=== PATIENT | male | born 1940 | race Caucasian/White ===

== ENCOUNTER 2024-12-28 07:37 | Emergency (ER) | payer OTHER, SELFPAY ==
[2024-12-28] VITALS (10 sets, daily range): BP systolic 120–168; BP diastolic 77–85; PULSE 82–110; RESP 15–25; TEMP 36.3–36.6; O2SAT 87–99; BMI 22.3
--- NOTE | 2024-12-28 07:53 | EKG12_ITS ---
Test Reason : SOB Blood Pressure : */* mmHG Vent. Rate : 97 BPM Atrial Rate : 97 BPM P-R Int : 150 ms QRS Dur : 122 ms QT Int : 372 ms P-R-T Axes : 79 28 46 degrees QTcB Int : 472 ms Normal sinus rhythm Right bundle branch block Abnormal ECG Confirmed by PEPE FOOTE, MICKEY ([id number]), general expeditor BAUTISTA MCGRATH ([id number]) on 12/30/2024 6:13:05 AM Referred By: Confirmed By: MICKEY CANTU MD
[2024-12-28 08:15] LABS: Absolute Lymphocyte Count 1.48 X10^3/uL (0.83-4.51); Absolute Neutrophil Count 3.4 X10^3/uL (2.0-7.7); Basophil# 0.06 X10^3/uL; Eosinophil# 0.71 X10^3/uL; Eosinophils% 11.7 % (0-5); Hematocrit 50.2 % (40-54); Hemoglobin 16.6 g/dL (13.0-16.5); Lymphocyte # 1.48 X10^3/ul (0.83-4.51); Lymphocyte % 24.3 % (19-41); Mean Corp Hgb Conc 33.1 g/dL (32-36); Mean Corpuscular Hgb 33.1 pg (27.0-32.0); Mean Corpuscular Volume 100.2 fL (80-94); Mean Platelet Vol. 9.1 fl (6.2-12.0); Monocyte# 0.49 X10^3/uL; NRBC Flagged by Analyzer 0 % (0-5); Neutrophil # 3.35 X10^3/uL (2.7-7.7); Platelet Count 195 K/mm3 (150-450); RBC Distribution Width CV 12.8 % (11.6-14.6); RBC Distribution Width SD 47.5 fl (35.1-43.9); Red Blood Count 5.01 M/mm3 (4.6-6.2); White Blood Count 6.1 K/mm3 (4.4-11.0)
--- NOTE | 2024-12-28 08:18 | RAD_ITS ---
PROCEDURE: CHEST PA AND LATERAL 12/28/2024 REASON FOR EXAM: DYSPNEA ON EXERTION TECHNIQUE: Frontal and lateral views of the chest. COMPARISON: None FINDINGS: Hardware: None Heart: The heart size is normal. Mediastinum: The mediastinal contour is unremarkable. Lungs: No focal consolidation. No pneumothorax. No pleural effusion. Bones: The bones are unremarkable. RAD/Chest PA and Lateral IMPRESSION: NO ACUTE FINDINGS. Reading Location: [facility]
[2024-12-28 08:38] LABS: Lactic Acid 1.5 mmol/L (0.0-2.0)
[2024-12-28 08:39] LABS: Anion Gap 10 (5-15); BUN 15 mg/dL (4-19); BUN/Creat Ratio 13.7 RATIO (10-20); Calcium,Total 9.8 mg/dL (7.6-11.0); Carbon Dioxide 29.9 mmol/L (21.0-32.0); Chloride 100 mmol/L (98-108); Creatinine, Serum 1.08 mg/dL (0.70-1.20); EST Glomerular Filtration Rate 67 (>60); Estimated Creatinine Clearance 47.66 ml/min (50-250); Glucose 125 mg/dL (70-99); Potassium 4.5 mmol/L (3.3-5.1); Sodium Level 140 mmol/L (133-145); Troponin T High Sensitivity 18 ng/L (<=22)
--- OUTSIDE RECORDS SUMMARY | 2024-12-28 08:46 | XMS RPT_ITS | CCD ---
Author Organization [facility] Care Team Providers Care Executive Producer Promos Name Role Phone VALERIE WALLACE Adalberto Unavailable Unavailable Braden FOOTE MD, Angela Unavailable [phone] JONO CUENCA Referring Unavailable TWYLA RAMOS Primary Care Unavailable JONO CUENCA Attending Unavailable TWYLA RAMOS Primary Care Unavailable JONO CUENCA Referring Unavailable TWYLA RAMOS Primary Care Unavailable JONO CUENCA Referring Unavailable Allergies Allergy Classification Reported Allergen(s) Allergy Type Date of Onset Reaction(s) Facility (4 sources) acetaminophen; Translations: [ACETAMINOPHEN] Drug Allergy 05-04-2016 Itching [facility] Repository (1 source) donna albicans extract; Translations: [YEAST] Drug Allergy 05-04-2016 AOF [facility] Repository (4 sources) oxyCODONE; Translations: [OXYCODONE] Drug Allergy 05-04-2016 [facility] Repository Medications Completed/Discontinued Medications Medication Drug Class(es) Dates Sig (Normalized) Sig (Original) diphenhydrAMINE (2 sources) Histamine-1 Receptor Antagonist DIPHENHYDRAMINE HCL (BENADRYL ALLERGY ORAL) Take 2 tablets by mouth as needed. 0 Active Comment on above: Take 2 tablets by mo ut as needed. 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); Translations: [Follicular lymphoma grade II, intrathoracic lymph nodes] Onset: 06-02-2016 Chronic Other nervous system disorders (2 sources) Spinal cord compression; Translations: [Unspecified cord compression] Onset: 05-24-2016 05-24-2016 Chronic Other nervous system disorders (2 sources) Complex regional pain syndrome type I of right upper limb; Translations: [Complex regional pain syndrome I of right upper limb] Onset: 10-19-2016 10-19-2016 Chronic Other upper respiratory disease (3 sources) Mediastinal mass; Translations: [Other diseases of mediastinum, not elsewhere classified] Onset: 05-04-2016 05-04-2016 Episodic Past or Other Problems Problem Classification Problem Date Documented Da te Episodic/Chronic Other nervous system disorders (2 sources) Anesthesia of skin; Translations: [Paresthesia of skin] Onset: 02-28-2017 Episodic Other upper respiratory disease (1 source) Other diseases of mediastinum, not elsewhere classified; Translations: [Mediastinal mass] Onset: 05-04-2016 Episodic Results Test Name Value Interpretation Reference Range Facility CBC W Auto Differential pane l (Bld)on 05-13-2022 Basophils (Bld) [#/Vol] 0.08 10*3/uL Normal <0.11 [facility] Comment on above: Order Comment: Speci men Type: BLOOD SPECIMEN Ordering Facility: [facility] Address: [address] [place] [address] Performed By: #### 5 7021-8 #### [facility] CLIA [id number] [address] [place] [address] [place] Basophils/100 WBC (Bld) 1.3 % Normal [facility] Comment on above: Order Comment: Speci men Type: BLOOD SPECIMEN Ordering Facility: [facility] Address: [address] [place] [address] Performed By: #### 5 7021-8 #### [facility] CLIA [id number] [address] [place] [address] [place] Differential cell count method Nom (Bld) Auto Normal [facility] Comment on above: Order Comment: Juani men Type: BLOOD SPECIMEN Ordering Facility: [facility] Address: [address] [place] [address] Performed By: #### 5 7021-8 #### [facility] CLIA [id number] [address] [place] [address] [place] Eosinophils (Bld) [#/Vol] 0.49 10*3/uL High <0.46 [facility] Comment on above: Order Comment: Speci men Type: BLOOD SPECIMEN Ordering Facility: [facility] Address: [address] [place] [address] Performed By: #### 5 7021-8 #### [facility] CLIA [id number] [address] [place] [address] [place] Eosinophils/100 WBC (Bld) 7.8 % Normal [facility] Comment on above: Order Comment: Speci men Type: BLOOD SPECIMEN Ordering Facility: [facility] Address: [address] [place] [address] Performed By: #### 5 7021-8 #### [facility] CLIA [id number] [address] [place] [address] [place] Erythrocyte distribution width (RBC) [Ratio] 12.8 % Normal 11.5-15.0 [facility] Comment on above: Order Comment: Speci men Type: BLOOD SPECIMEN Ordering Facility: [facility] Address: [address] [place] [address] Performed By: #### 5 7021-8 #### [facility] CLIA [id number] [address] [place] [address] [place] Hematocrit (Bld) [Volume fraction] 48.8 % Normal 39.0-51.0 [facility] Comment on above: Order Comment: Speci men Type: BLOOD SPECIMEN Ordering Facility: [facility] Address: [address] [place] [address] Performed By: #### 5 7021-8 #### [facility] CLIA [id number] [address] [place] [address] [place] Hemoglobin (Bld) [Mass/Vol] 16.3 g/dL Normal 13.0-17.0 [facility] Comment on above: Order Comment: Speci men Type: BLOOD SPECIMEN Ordering Facility: [facility] Address: [address] [place], [place] [address] Performed By: #### 5 7021-8 #### [facility] CLIA [id number] [address] [place] [address] [place] Immature granulocytes (Bld) [#/Vol] 10*3/uL Normal <0.10 [facility] Comment on above: Order Comment: Speci men Type: BLOOD SPECIMEN Ordering Facility: [facility] Address: [address] [place], [place] [address] Performed By: #### 5 7021-8 #### [facility] CLIA [id number] [address] [place] [address] [place] Immature granulocytes/100 WBC (Bld) 0.3 % Normal [facility] Comment on above: Order Comment: Speci men Type: BLOOD SPECIMEN Ordering Facility: [facility] Address: [address] [place], [place] [address] Performed By: #### 5 7021-8 #### [facility] CLIA [id number] [address] [place] [address] [place] Lymphocytes (Bld) [#/Vol] 1.57 10*3/uL Normal 1.00-4.00 [facility] Comment on above: Order Comment: Speci men Type: BLOOD SPECIMEN Ordering Facility: [facility] Address: [address] [place], [place] [address] Performed By: #### 5 7021-8 #### [facility] CLIA [id number] [address] [place] [address] [place] Lymphocytes/100 WBC (Bld) 24.9 % Normal [facility] Comment on above: Order Comment: Speci men Type: BLOOD SPECIMEN Ordering Facility: [facility] Address: [address] [place], [place] [address] Performed By: #### 5 7021-8 #### [facility] CLIA [id number] [address] [place] [address] MCH (RBC) [Entitic mass] 33.3 pg Normal 26.0-34.0 [facility] Comment on above: Order Comment: Speci men Type: BLOOD SPECIMEN Ordering Facility: [facility] Address: [address] [place] [address] Performed By: #### 5 7021-8 #### [id number] [address] [place] [address] MCHC (RBC) [Mass/Vol] 33.4 g/dL Normal 30.5-36.0 [facility] Comment on above: Order Comment: Speci men Type: BLOOD SPECIMEN Ordering Facility: [facility] Address: [address] [place] [address] Performed By: #### 5 7021-8 #### [facility] [id number] [address] [place] [address] [facility] MCV (RBC) [Entitic vol] 99.8 fL Normal 80.0-100.0 [facility] Comment on above: Order Comment: Speci men Type: BLOOD SPECIMEN Ordering Facility: [facility] Address: [address] [place], [place] [address] Performed By: #### 5 7021-8 #### [facility] [id number] [address] [place] [address] [place] [facility] [place] Monocytes (Bld) [#/Vol] 0.52 10*3/uL Normal <0.87 [facility] Comment on above: Order Comment: Speci men Type: BLOOD SPECIMEN Ordering Facility: [facility] Address: [address] [place], [place] [address] Performed By: #### 5 7021-8 #### [facility] CLIA [id number] [address] [place] [address] [place] Monocytes/100 WBC (Bld) 8.2 % Normal [facility] Comment on above: Order Comment: Speci men Type: BLOOD SPECIMEN Ordering Facility: [facility] Address: [address] [place] [address] Performed By: #### 5 7021-8 #### [facility] CLIA [id number] [address] [place] [address] [place] Neutrophils (Bld) [#/Vol] 3.63 10*3/uL Normal 1.45-7.50 [facility] Comment on above: Order Comment: Speci men Type: BLOOD SPECIMEN Ordering Facility: [facility] Address: [address] [place] [address] Performed By: #### 5 7021-8 #### [facility] CLIA [id number] [address] [place] [address] [place] Neutrophils/100 WBC (Bld) 57.5 % Normal [facility] Comment on above: Order Comment: Speci men Type: BLOOD SPECIMEN Ordering Facility: [facility] Address: [address] [place] [address] Performed By: #### 5 7021-8 #### [facility] CLIA [id number] [address] [place] [address] [place] Nucleated RBC (Bld) [#/Vol] 10*3/uL Normal <0.01 [facility] Comment on above: Order Comment: Speci men Type: BLOOD SPECIMEN Ordering Facility: [facility] Address: [address] [place] [address] Performed By: #### 5 7021-8 #### [facility] CLIA [id number] [address] [place] [address] [place] Nucleated RBC/100 WBC (Bld) [Ratio] 0.0 /100 WBC Normal [facility] Comment on above: Order Comment: Speci men Type: BLOOD SPECIMEN Ordering Facility: [facility] Address: [address] [place] [address] Performed By: #### 5 7021-8 #### [facility] CLIA [id number] [address] [place] [address] [place] Platelet mean volume (Bld) [Entitic vol] 8.7 fL Low 9.0-12.7 [facility] Comment on above: Order Comment: Speci men Type: BLOOD SPECIMEN Ordering Facility: [facility] Address: [address] [place] [address] Performed By: #### 5 7021-8 #### [facility] CLIA [id number] [address] [place] [address] [place] Platelets (Bld) [#/Vol] 202 10*3/uL Normal 150-400 [facility] Comment on above: Order Comment: Speci men Type: BLOOD SPECIMEN Ordering Facility: [facility] Address: [address] [place], [place] [address] Performed By: #### 5 7021-8 #### [facility] CLIA [id number] [address] [place] [address] [place] RBC (Bld) [#/Vol] 4.89 10*6/uL Normal 4.20-6.00 [facility] Comment on above: Order Comment: Speci men Type: BLOOD SPECIMEN Ordering Facility: [facility] Address: [address] [place], [place] [address] Performed By: #### 5 7021-8 #### [facility] CLIA [id number] [address] [place] [address] [place] WBC (Bld) [#/Vol] 6.31 10*3/uL Normal 3.70-11.00 [facility] Comment on above: Order Comment: Speci men Type: BLOOD SPECIMEN Ordering Facility: [facility] Address: [address] [place] [address] Performed By: #### 5 7021-8 #### [facility] RILEY [id number] [address] [place] [address] [place] CNOVSPon 05-13-2022 CNOVSP Visit (SP) Office ([facility]) RAMANAGIOVANNY Robbins ([id number]) 1940 M Date Time Provider Department 05/13/22 9:00 AM JONO CUENCA During your visit today, we recorded the following information about you: Temperature Pulse Blood pressure Weight 98 degrees 89/minute 129/76 84.1 kg Height 1.787 m Jono Cuenca MD 05/13/2022 9:24 AM Signed PATIENT NAME: Giovanny Robbins Ramana. CLINIC NO: [id number]. ATTENDING PHYSICIAN: Jono Cuenca MD. DATE OF SERVICE: 05/13/2022. 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 He denies history of tobacco abuse but had secondhand smoke exposure. Possible occupational exposure to a dose in the forearm. Patient has a mild chronic cough but no shortness of breath or dyspnea on exertion. He has reactive airway disease diagnosed many years ago. Patient also has a long history of dysphagia. He may have esophageal stricture, he had EGD for removal of food stuck in his esophagus 15 years ago. He has intermittent history of acid reflux disease, but had not noticed any symptom in the last 3 years. Patient denies any significant weight loss, fever chills or night sweats. CTA chest was ordered in the emergency room. CT scan chest in the emergency room last week showed no evidence of pulmonary embolism. Posterior mediastinal mass extending from the nic to the diaphragm hiatus. 6.9 x 8.0 centimeter in greatest AP transverse dimension. Encompass three-quarter of the aorta on the right and from the spine involving the lumbar brachial artery. No bony erosion. Esophagus appeared to be somewhat thickened.Emphysematous changes noted in the lung bases. Normal upper abdomen, liver and spleen and adrenal glands. Subsequent diagnostic workup including bronchoscopy which showed no endobronchial lesion. EBUS biopsy of posterior mediastinal mass with negative for malignant cells. AFB stain was negative. Esophageal study also showed posterior extrinsic compression of the mid to lower esophagus but no esophageal ulcers. A CT needle biopsy of the posterior mediastinal mass in his pathology is consistent with a follicular B-cell lymphoma. Patient was also started on dexamethasone and had radiation therapy (400 cGy in 2 fx) to his thoracic spine and his back pain has improved. He has no focal neurological symptom. Patient has no fever, chills or night sweats. He may had herpetic infection of the mouth and had recovered after finishing radiation therapy . He has no difficulty swallowing or stomatitis at this time. Bone marrow biopsy last week for complete staging showed no lymphoma involvement. FINAL DIAGNOSIS Mass, mediastinal, biopsy - Low-grade B cell lymphoma, favor follicular lymphoma, grade 1-2 (of 3). CVC/jacob 06/01/2016 COMMENT Histologic sections show needle-shaped fragments of fibroconnective tissue with marked sclerosis and an abnormal lymphoid infiltrate. The lymphocytes are predominantly small, with slightly irregular nuclei and scant cytoplasm. Further examination is not possible due to the partially crushed nature of the specimen. The overall architecture of this infiltrate is also difficult to assess, but there are areas with features corresponding to loose abnormal follicles. Flow cytometric immunophenotypic analysis performed on this specimen identified an abnormal B-cell population positive for CD10 and negative for surface immunoglobulin light chains. Immunohistochemical stains have been performed on sections of the fixed, paraffin-embedded tissue with appropriately staining controls. The lymphoma cells are positive are positive for CD10, CD20, BCL2 and BCL6 (subset). The stain for Ki-67 is positive in approximately 20% of total cells. Small, mature T-cells are seen on the stain for CD3. There are no networks of JQ23-orjnrboc follicular dendritic cells. The neoplastic cells are negative for cyclin D1. In conclusion, the findings in this case support the diagnosis of low-grade B cell lymphoma, favor follicular lymphoma grade 1-2 (of 3). The small amount of specimen available, as well as the lack of networks of OS34-ukcwgzme follicular dendritic cells prevent the categorical diagnosis of follicular lymphoma. Previous Treatment: Rituxan AND Bendamustine x 4 ( 07/28/16 - 11/06/16 ) [place] - Rituxan maintenance ( 11/07/2016 - 12/21/2017 ) Interim history: Patient is doing well. He has no new complaints. He denies fever, chills or sweating. He has no chest pain, or shortness of breath. No back pain or neck pain. His weight and appetite stable. All medications AND allergies updated and reviewed by me. REVIEW OF SYSTEMS: CONSTITUTIONAL: No fevers, chills, nightsweats, unintended weight loss HEENT: Denies frequent or severe heaches, (more content not included)... Normal [facility] Comprehensive metabolic 2000 panelon 05-13-2022 Albumin [Mass/Vol] 4.4 g/dL Normal 3.9-4.9 [facility] Comment on above: Order Comment: Abiola siddiqi Type: BLOOD SPECIMEN Ordering Facility: [facility] Address: [address] [place] [address] Performed By: #### 2 4323-8, 253-0 #### [facility] CLIA [id number] [address] [place] [address] [place] ALP [Catalytic activity/Vol] 95 U/L Normal 38-113 [facility] Comment on above: Order Comment: Abiola siddiqi Type: BLOOD SPECIMEN Ordering Facility: [facility] Address: [address] [place] [address] Performed By: #### 2 4323-8, 2532-0 #### [facility] CLIA [id number] [address] [place] [address] STATES OF [facility] ALT [Catalytic activity/Vol] 14 U/L Normal 10-54 [facility] Comment on above: Order Comment: Abiola siddiqi Type: BLOOD SPECIMEN Ordering Facility: [facility] Address: [address] [place], [place] Performed By: #### 2 43238, 2531-0 #### [facility] CLIA [id number] [address] [place] [address] [place] Anion gap [Moles/Vol] 10 mmol/L Normal 9-18 [facility] Comment on above: Order Comment: Speci men Type: BLOOD SPECIMEN Ordering Facility: [facility] Address: [address] [place], [place] [address] Performed By: #### 2 4328, 2531-0 #### [facility] CLIA [id number] [address] [place] [address] [place] AST [Catalytic activity/Vol] 22 U/L Normal 14-40 [facility] Comment on above: Order Comment: Speci men Type: BLOOD SPECIMEN Ordering Facility: [facility] Address: [address] [place], [place] [address] Performed By: #### 2 4323-02, 2531-0 #### [facility] CLIA [id number] [address] [place] [address] [place] Bilirubin [Mass/Vol] 0.6 mg/dL Normal 0.2-1.3 [facility] Comment on above: Order Comment: Speci men Type: BLOOD SPECIMEN Ordering Facility: [facility] Address: [address] [place], [place] [address] Performed By: #### 2 4328, 2531-0 #### [facility] CLIA [id number] [address] [place] [address] [place] Calcium [Mass/Vol] 9.7 mg/dL Normal 8.5-10.2 [facility] Comment on above: Order Comment: Speci men Type: BLOOD SPECIMEN Ordering Facility: [facility] Address: [address] [place], [place] [address] Performed By: #### 2 4328, 2-0 #### [facility] CLIA [id number] [address] [place] [address] [place] Chloride [Moles/Vol] 100 mmol/L Normal 97-105 [facility] Comment on above: Order Comment: Speci men Type: BLOOD SPECIMEN Ordering Facility: [facility] Address: [address] [place] [address] Performed By: #### 2 4323-8, 2532-0 #### [facility] CLIA [id number] [address] [place] [address] [place] CO2 [Moles/Vol] 27 mmol/L Normal 22-30 [facility] Comment on above: Order Comment: Speci men Type: BLOOD SPECIMEN Ordering Facility: [facility] Address: [address] [place] [address] Performed By: #### 2 4323-8, 2532-0 #### [facility] CLIA [id number] [address] [place] [address] [place] Creatinine [Mass/Vol] 1.01 mg/dL Normal 0.73-1.22 [facility] Comment on above: Order Comment: Speci men Type: BLOOD SPECIMEN Ordering Facility: [facility] Address: [address] [place] [address] Performed By: #### 2 4323-8, 2532-0 #### [facility] CLIA [id number] [address] [place] [address] [place] ESTIMATED GLOMERULAR FILTRATION RATE 74 mL/min/1.73m??? Normal >=60 [facility] Comment on above: Order Comment: Speci men Type: BLOOD SPECIMEN Ordering Facility: [facility] Address: [address] [place] [address] Result Comment: Cinthya mated Glomerular Filtration Rate (eGFR) is calculated using the 2020 CKD-EPI creatinine equation. This equation utilizes serum creatinine, sex, and age as parameters. The creatinine assay has traceable calibration to isotope dilution-mass spectrometry. Refer to KDIGO guidelines for clinical interpretation. In patients with unstable renal function, e.g. those with acute kidney injury, the eGFR may not accurately reflect actual GFR. Performed By: #### 2 4328, #### [facility] CLIA [id number] [address] [place] [address] [place] Glucose [Mass/Vol] 103 mg/dL High 74-99 [facility] Comment on above: Order Comment: Abiola siddiqi Type: BLOOD SPECIMEN Ordering Facility: [facility] Address: [address] [place] [address] Result Comment: The [place] Diabetes [employer] (ADA) provides guidance for cutoff values for fasting glucose and random glucose. The ADA defines fasting as no caloric intake for at least 8 hours. Fasting plasma glucose results between 100 to 125 mg/dL indicate increased risk for diabetes (prediabetes). Fasting plasma glucose results greater than or equal to 126 mg/dL meet the criteria for diagnosis of diabetes. In the absence of unequivocal hyperglycemia, results should be confirmed by repeat testing. In a patient with classic symptoms of hyperglycemia or hyperglycemic crisis, random plasma glucose results greater than or equal to 200 mg/dL meet the criteria for diagnosis of diabetes. Reference: Standards of Medical Care in Diabetes 2016, [place] [employer]. Diabetes Care. 2016.39(Suppl 1). Performed By: #### 2 4328, #### [facility] CLIA [id number] [address] [place] [address] [place] Potassium [Moles/Vol] 4.3 mmol/L Normal 3.7-5.1 [facility] Comment on above: Order Comment: Abiola siddiqi Type: BLOOD SPECIMEN Ordering Facility: [facility] Address: [address] [place] [address] Performed By: #### 2 4328, #### [facility] CLIA [id number] [address] [place] [address] [place] Protein [Mass/Vol] 6.7 g/dL Normal 6.3-8.0 [facility] Comment on above: Order Comment: Speci men Type: BLOOD SPECIMEN Ordering Facility: [facility] Address: [address] [place], [place] [address] Performed By: #### 2 4323-8, 2531-0 #### [facility] CLIA [id number] [address] [place] [address] [place] Sodium [Moles/Vol] 137 mmol/L Normal 136-144 [facility] Comment on above: Order Comment: Speci men Type: BLOOD SPECIMEN Ordering Facility: [facility] Address: [address] [place] [address] Performed By: #### 2 4323-8, 2531-0 #### [id number] [address] [place] [address] [place] Urea nitrogen [Mass/Vol] 14 mg/dL Normal 9-24 [facility] Comment on above: Order Comment: Speci men Type: BLOOD SPECIMEN Ordering Facility: [facility] Address: [address] [place] [address] Performed By: #### 2 4323-8, 2531-0 #### [facility] CLIA [id number] [address] [place] [address] [place] LDH SerPl-cCncon 05-13-2022 LDH [Catalytic activity/Vol] 148 U/L Normal 135-225 [facility] Comment on above: Order Comment: Speci men Type: BLOOD SPECIMEN Ordering Facility: [facility] Address: [address] [place], [place] [id number] Performed By: #### 2 4323-8, 2531-0 #### [facility] [id number] [address] [place] [address] [place] XR CHEST 2V FRONTAL/LATon XR CHEST 2V FRONTAL/LAT * * *Final Report* * * DATE OF EXAM: May 13 2022 8:31AM [id number] - XR CHEST 2V FRONTAL/LAT / PROCEDURE REASON: multiple diagnoses * * * * Physician Interpretation * * * * EXAMINATION: CHEST RADIOGRAPH (2 VIEW FRONTAL and LATERAL) CLINICAL HISTORY: 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 Lungs and pleura: No consolidation. No lung mass. No pleural effusion. No pneumothorax. Cardiomediastinal silhouette: Normal cardiomediastinal silhouette. Bones and soft tissues: Unremarkable. IMPRESSION: No acute radiographic abnormality. 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 Transcribe Date/Time: May 13 2022 4:47P Dictated by : LUCILA CONTRERAS MD This examination was interpreted and the report reviewed and electronically signed by: LUCILA CONTRERAS MD on May 13 2022 4:48PM EST [id number] Normal [facility] Vital Signs Date Time Vital Sign Value Performing Clinician Faci lity 05-13-2022 08:43-0400 Body height 178.7 cm Jono Cuenca MD Work Phone: [facility] 05-13-2022 08:43-0400 Body temperature 98.01 [degF] Jono Cuenca MD Work Phone: [facility] 05-13-2022 08:43-0400 Body weight 84.14 kg Jono Cuenca MD Work Phone: [facility] 05-13-2022 08:43-0400 Diastolic blood pressure 76 mm[Hg] Jono Cuenca MD Work Phone: [facility] 05-13-2022 08:43-0400 Heart rate 89 /min Jono Cuenca MD Work Phone: [facility] 05-13-2022 08:43-0400 SaO2% (BldA) [Mass fraction] 96 % Jono Cuenca MD Work Phone: [facility] 05-13-2022 08:43-0400 Systolic blood pressure 129 mm[Hg] Jono Cuenca MD Work Phone: [facility] Encounters Encounter Date Encounter Type Care Provider Facility Start: 05-13-2022 End: 05-13-2022 ambulatory Jono Cuenca MD Work Phone: Hematology/Oncology Comment on above: 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 (HCC) (Primary Dx) Start: 05-13-2022 End: 05-13-2022 Patient encounter procedure Jono Cuenca MD Work Phone: [facility] Start: 05-13-2022 End: 05-13-2022 Subsequent hospital visit by physician Xr [facility] Paty Mob Work Phone: Radiology Comment on above: 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 (HCC) [C82.12] Start: 02-28-2017 End: 02-28-2017 [facility] Procedures Date Procedure Procedure Detail Performing Clinician Start: 05-13-2022 Radiologic exam ches t 2 views Jono Cuenca MD Work Phone: Plan of Treatment Date Care Activity Detail Author Start: 05-13-2025 DIABETES SCREEN DIABETES SCREEN [facility] Start: 03-24-2022 Influenza vaccination INFLUENZA (#1) [facility] Start: 07-24-2021 ADVANCE DIRECTIVE DISCUSSION ADVANCE DIRECTIVE DISCUSSION [facility] Start: 07-24-2021 DEPRESSION ASSESSMENT DEPRESSION ASS ESSMENT [facility] Start: 1959 SHINGRIX VACCINE (1 of 2) BAGLEY GRIX VACCINE (1 of 2) [facility] Start: 1957 Urine microalbumin profile DTAP,TDAP ,TD (1 - Tdap) [facility] Start: 1946 PNEUMOCOCCAL: 65+ (1 - PCV) PNEUMOCOCCAL: 65+ (1 - PCV) [facility] Start: 04-17-1939 COVID-19 VACCINE (#1) COVID-19 VACCI NE (#1) [facility] Social History Date Type Detail Facility Start: 05-04-2016 Tobacco smoking stat us NHIS Never smoked tobacco [facility] Start: 05-04-2016 Tobacco use and exposure Smoke less tobacco non-user [facility] Start: 05-13-2022 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 Start: 05-03-2022 End: 05-13-2022 Exposure to SARS-CoV-2 (event) Not sure [facility] Progress note 05-13-2022 Note Date & Type Note Facility 05-13-2022 Note HNO ID: [id number] Author: Jono Cuenca MD Service: ? Author Type: Physician Type: Progress Notes Filed: 05/13/2022 9:24 AM Note Text: PATIENT NAME: Giovanny Auguste. CLINIC NO: [id number]. ATTENDING PHYSICIAN: Jono Cuenca MD. DATE OF SERVICE: 05/13/2022. 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 He denies history of tobacco abuse but had secondhand smoke exposure. Possible occupational exposure to a dose in the forearm. Patient has a mild chronic cough but no shortness of breath or dyspnea on exertion. He has reactive airway disease diagnosed many years ago. Patient also has a long history of dysphagia. He may have esophageal stricture, he had EGD for removal of food stuck in his esophagus 15 years ago. He has intermittent history of acid reflux disease, but had not noticed any symptom in the last 3 years. Patient denies any significant weight loss, fever chills or night sweats. CTA chest was ordered in the emergency room. CT scan chest in the emergency room last week showed no evidence of pulmonary embolism. Posterior mediastinal mass extending from the nic to the diaphragm hiatus. 6.9 x 8.0 centimeter in greatest AP transverse dimension. Encompass three-quarter of the aorta on the right and from the spine involving the lumbar brachial artery. No bony erosion. Esophagus appeared to be somewhat thickened.Emphysematous changes noted in the lung bases. Normal upper abdomen, liver and spleen and adrenal glands. Subsequent diagnostic workup including bronchoscopy which showed no endobronchial lesion. EBUS biopsy of posterior mediastinal mass with negative for malignant cells. AFB stain was negative. Esophageal study also showed posterior extrinsic compression of the mid to lower esophagus but no esophageal ulcers. A CT needle biopsy of the posterior mediastinal mass in his pathology is consistent with a follicular B-cell lymphoma. Patient was also started on dexamethasone and had radiation therapy (400 cGy in 2 fx) to his thoracic spine and his back pain has improved. He has no focal neurological symptom. Patient has no fever, chills or night sweats. He may had herpetic infection of the mouth and had recovered after finishing radiation therapy . He has no difficulty swallowing or stomatitis at this time. Bone marrow biopsy last week for complete staging showed no lymphoma involvement. FINAL DIAGNOSIS Mass, mediastinal, biopsy - Low-grade B cell lymphoma, favor follicular lymphoma, grade 1-2 (of 3). CVC/jacob 06/01/2016 COMMENT Histologic sections show needle-shaped fragments of fibroconnective tissue with marked sclerosis and an abnormal lymphoid infiltrate. The lymphocytes are predominantly small, with slightly irregular nuclei and scant cytoplasm. Further examination is not possible due to the partially crushed nature of the specimen. The overall architecture of this infiltrate is also difficult to assess, but there are areas with features corresponding to loose abnormal follicles. Flow cytometric immunophenotypic analysis performed on this specimen identified an abnormal B-cell population positive for CD10 and negative for surface immunoglobulin light chains. Immunohistochemical stains have been performed on sections of the fixed, paraffin-embedded tissue with appropriately staining controls. The lymphoma cells are positive are positive for CD10, CD20, BCL2 and BCL6 (subset). The stain for Ki-67 is positive in approximately 20% of total cells. Small, mature T-cells are seen on the stain for CD3. There are no networks of [id number] follicular dendritic cells. The neoplastic cells are negative for cyclin D1. In conclusion, the findings in this case support the diagnosis of low-grade B cell lymphoma, favor follicular lymphoma grade 1-2 (of 3). The small amount of specimen available, as well as the lack of networks of [id number] follicular dendritic cells prevent the categorical diagnosis of follicular lymphoma. Previous Treatment: Rituxan AND Bendamustine x 4 ( 07/28/16 - 11/06/16 ) [place] - Rituxan maintenance ( 11/07/2016 - 12/21/2017 ) Interim history: Patient is doing well. He has no new complaints. He denies fever, chills or sweating. He has no chest pain, or shortness of breath. No back pain or neck pain. His weight and appetite stable. All medications AND allergies updated and reviewed by me. REVIEW OF SYSTEMS: CONSTITUTIONAL: No fevers, chills, nightsweats, unintended weight loss HEENT: Denies frequent or severe heaches, nasal congestion/sinus symptoms, problematic allergy problems. EYES: No diplopia or blurry vision. CARDIOVASCULAR: no chest pain, dyspnea, palpitations, orthopnea, PND, ankle edema. PULM: No dyspnea, unexplained cough. GI: no dysphagia or odynophagia, problemati (more content not included)... [facility] Progress note 05-13-2022 Note Date & Type Note Facility 05-13-2022 Note HNO ID: [id number] Author: RT Catracho(R) Service: Nuclear Medicine Author Type: Technologist Type: Progress Notes Filed: 05/13/2022 8:38 AM Note Text: Radiology Service Progress Note PATIENT NAME: Giovanny Auguste DATE OF SERVICE: May 13, 2022 TIME: 8:29 AM PATIENT IDENTITY VERIFICATION COMPLETED USING TWO (2) IDENTIFIERS: Name and Date of confirmed by patient verbally. FALL SCREENING: Has the patient had 2 falls in the last year or 1 fall with injury or currently using an Ambulatory Assistive Device (Walker, Cane, Wheelchair, Crutches, etc.)? No PATIENT GENDER DATA: Male PATIENT RELEVANT IMPLANT DATA REVIEWED: Not Applicable RADIOLOGY DEPARTMENT: General X-ray: Exam(s) Completed: Chest X-Ray PERIPHERAL IV DATA: Not applicable SIGNED BY: RT Catracho(R) May 13, 2022 8:29 AM [facility] History of Present illness Narrative 05-13-2022 Jono Cuenca MD - 05/13/2022 8:42 AM EDT Note Date & Type Note Facility 05-13-2022 History of Presen t illness Narrative PATIENT NAME: Giovanny Auguste. CLINIC NO: [id number]. ATTENDING PHYSICIAN: Jono Cuenca MD. DATE OF SERVICE: 05/13/2022. 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 He denies history of tobacco abuse but had secondhand smoke exposure. Possible occupational exposure to a dose in the forearm. Patient has a mild chronic cough but no shortness of breath or dyspnea on exertion. He has reactive airway disease diagnosed many years ago. Patient also has a long history of dysphagia. He may have esophageal stricture, he had EGD for removal of food stuck in his esophagus 15 years ago. He has intermittent history of acid reflux disease, but had not noticed any symptom in the last 3 years. Patient denies any significant weight loss, fever chills or night sweats. CTA chest was ordered in the emergency room. CT scan chest in the emergency room last week showed no evidence of pulmonary embolism. Posterior mediastinal mass extending from the nic to the diaphragm hiatus. 6.9 x 8.0 centimeter in greatest AP transverse dimension. Encompass three-quarter of the aorta on the right and from the spine involving the lumbar brachial artery. No bony erosion. Esophagus appeared to be somewhat thickened.Emphysematous changes noted in the lung bases. Normal upper abdomen, liver and spleen and adrenal glands. Subsequent diagnostic workup including bronchoscopy which showed no endobronchial lesion. EBUS biopsy of posterior mediastinal mass with negative for malignant cells. AFB stain was negative. Esophageal study also showed posterior extrinsic compression of the mid to lower esophagus but no esophageal ulcers. A CT needle biopsy of the posterior mediastinal mass in his pathology is consistent with a follicular B-cell lymphoma. Patient was also started on dexamethasone and had radiation therapy (400 cGy in 2 fx) to his thoracic spine and his back pain has improved. He has no focal neurological symptom. Patient has no fever, chills or night sweats. He may had herpetic infection of the mouth and had recovered after finishing radiation therapy . He has no difficulty swallowing or stomatitis at this time. Bone marrow biopsy last week for complete staging showed no lymphoma involvement. FINAL DIAGNOSIS Mass, mediastinal, biopsy - Low-grade B cell lymphoma, favor follicular lymphoma, grade 1-2 (of 3). CVC/srj 06/01/2016 COMMENT Histologic sections show needle-shaped fragments of fibroconnective tissue with marked sclerosis and an abnormal lymphoid infiltrate. The lymphocytes are predominantly small, with slightly irregular nuclei and scant cytoplasm. Further examination is not possible due to the partially crushed nature of the specimen. The overall architecture of this infiltrate is also difficult to assess, but there are areas with features corresponding to loose abnormal follicles. Flow cytometric immunophenotypic analysis performed on this specimen identified an abnormal B-cell population positive for CD10 and negative for surface immunoglobulin light chains. Immunohistochemical stains have been performed on sections of the fixed, paraffin-embedded tissue with appropriately staining controls. The lymphoma cells are positive are positive for CD10, CD20, BCL2 and BCL6 (subset). The stain for Ki-67 is positive in approximately 20% of total cells. Small, mature T-cells are seen on the stain for CD3. There are no networks of RO90-qtmwscms follicular dendritic cells. The neoplastic cells are negative for cyclin D1. In conclusion, the findings in this case support the diagnosis of low-grade B cell lymphoma, favor follicular lymphoma grade 1-2 (of 3). The small amount of specimen available, as well as the lack of networks of [id number] follicular dendritic cells prevent the categorical diagnosis of follicular lymphoma. Previous Treatment: Rituxan & Bendamustine x 4 ( 07/28/16 - 11/06/16 ) [place] - Rituxan maintenance ( 11/07/2016 - 12/21/2017 ) Interim history: Patient is doing well. He has no new complaints. He denies fever, chills or sweating. He has no chest pain, or shortness of breath. No back pain or neck pain. His weight and appetite stable. All medications & allergies updated and reviewed by me. REVIEW OF SYSTEMS: CONSTITUTIONAL: No fevers, chills, nightsweats, unintended weight loss HEENT: Denies frequent or severe heaches, nasal congestion/sinus symptoms, problematic allergy problems. EYES: No diplopia or blurry vision. CARDIOVASCULAR: no chest pain, dyspnea, palpitations, orthopnea, PND, ankle edema. PULM: No dyspnea, unexplained cough. GI: no dysphagia or odynophagia, problematic reflux, constipation, diarrhea, changes in stool habits, hematochezia, melena. : No new urinary complaints, including dysuria, gross hematuria or pyuria. NEURO: No new balance problems, peripheral weakness/paresthesias or numbness of concern. MUSC-SKEL: No new joint pain, swelling, or erythema. PSY: No concerns regarding depression, anxiety or panic. INTEGUMENTARY: No new skin changes (rash, new or changing mole, new growth) PHYSICAL EXAMINATION: 81 year-old gentleman in no acute distress Performance status: 100% BP 129/76 Pulse 89 Temp 98 Ht 5' 10.374 (1.79m) Wt 185 lb 8 oz (84.1kg) SpO2 96% BMI 26.35 kg/(m^2). HEENT: Head is normocephalic, atraumatic. Sclerae white, conjunctivae pink. PEERL. EOMs are intact. Oropharynx is benign. LYMPHATICS: There is no palpable adenopathy in the neck, supraclavicular region, axillae, or groin. LUNGS: Lungs are clear to percussion and auscultation. HEART: Heart is normal without murmurs, gallops, or rubs. ABDOMEN: Soft and nontender without organomegaly. No masses can be palpated. EXTREMITIES: Are no lymphedema. right and left knees without inflammation or crepitation, decreased range of motion movement of right knee secondary to pain NEUROLOGIC: Exam is physiologic; cranial nerves II-12 intact. No motor deficits or sensory deficit. LABS: Component Latest Ref Rng & Units 05/13/2022 WBC 3.70 - 11.00 k/uL 6.31 RBC 4.20 - 6.00 m/uL 4.89 Hemoglobin 13.0 - 17.0 g/dL 16.3 Hematocrit 39.0 - 51.0 % 48.8 MCV 80.0 - 100.0 fL 99.8 MCH 26.0 - 34.0 pg 33.3 MCHC 30.5 - 36.0 g/dL 33.4 RDW-CV 11.5 - 15.0 % 12.8 Platelet Count 150 - 400 k/uL 202 MPV 9.0 - 12.7 fL 8.7 (L) Neut% % 57.5 Abs Neut (ANC) 1.45 - 7.50 k/uL 3.63 Lymph% % 24.9 Abs Lymph 1.00 - 4.00 k/uL 1.57 [place]% % 8.2 Abs [place] <0.87 k/uL 0.52 Eosin% % 7.8 Abs Eosin <0.46 k/uL 0.49 (H) Baso% % 1.3 Abs Baso <0.11 k/uL 0.08 Immature Gran % % 0.3 IMMATURE GRANS (ABS) <0.10 k/uL <0.03 NRBC /100 WBC 0.0 Absolute nRBC <0.01 k/uL <0.01 DTYPE Auto Component Latest Ref Rng & Units 05/13/2022 Protein, Total 6.3 - 8.0 g/dL 6.7 Albumin 3.9 - 4.9 g/dL 4.4 Calcium 8.5 - 10.2 mg/dL 9.7 Bilirubin, Total 0.2 - 1.3 mg/dL 0.6 Alkaline Phosphatase 38 - 113 U/L 95 AST 14 - 40 U/L 22 ALT 10 - 54 U/L 14 Glucose 74 - 99 mg/dL 103 (H) BUN 9 - 24 mg/dL 14 Creatinine 0.73 - 1.22 mg/dL 1.01 Sodium 136 - 144 mmol/L 137 Potassium 3.7 - 5.1 mmol/L 4.3 Chloride 97 - 105 mmol/L 100 CO2 22 - 30 mmol/L 27 Anion Gap 9 - 18 mmol/L 10 eGFR >=60 mL/min/1.73m 74 LD 135 - 225 U/L 148 CXR: IMPRESSION: No acute radiographic abnormality. ASSESSMENT: 81 year-old gentleman presenting with history of chest and back pain from stage IIe; low-grade follicular B-cell lymphoma. Very good partial response after 4 cycles chemotherapy, and completed maintenance rituximab for 1 year (November 2017) -Mr. Auguste is doing well. He remains in Complete Remission after 5 years. PLAN: -Continued observation and follow up for his follicular lymphoma as needed -Follow up with PCP Portions of this documentation were copied and pasted from previous office visit notes in order to provide a cohesive continuity of the history. The note has been reviewed and edited and updated as necessary. Jono Cuenca MD documented in this encounter [facility] History of Present illness Narrative 05-13-2022 Tabatha Jack, RT(R) - 05/13/2022 8:30 AM EDT Note Date & Type Note Facility 05-13-2022 History of Presen t illness Narrative Radiology Service Progress Note PATIENT NAME: Giovanny Auguste DATE OF SERVICE: May 13, 2022 TIME: 8:29 AM PATIENT IDENTITY VERIFICATION COMPLETED USING TWO (2) IDENTIFIERS: Name and Date of confirmed by patient verbally. FALL SCREENING: Has the patient had 2 falls in the last year or 1 fall with injury or currently using an Ambulatory Assistive Device (Walker, Cane, Wheelchair, Crutches, etc.)? No PATIENT GENDER DATA: Male PATIENT RELEVANT IMPLANT DATA REVIEWED: Not Applicable RADIOLOGY DEPARTMENT: General X-ray: Exam(s) Completed: Chest X-Ray PERIPHERAL IV DATA: Not applicable SIGNED BY: RT Catracho(R) May 13, 2022 8:29 AM documented in this encounter [facility] History of Past illness Narrative 06-17-2016 Note Date & Type Note Facility 06-17-2016 History of Past i llness Narrative Problem Noted Date Resolved Date Chemotherapy-induced neutropenia 06/17/2016 07/06/2018 Cancer of trachea, bronchus, and lung 04/27/2016 05/16/2016 documented as of this encounter (statuses as of 05/13/2022) [facility] History of Past illness Narrative 06-17-2016 Note Date & Type Note Facility 06-17-2016 History of Past i llness Narrative Problem Noted Date Resolved Date Chemotherapy-induced neutropenia 06/17/2016 07/06/2018 Cancer of trachea, bronchus, and lung 04/27/2016 05/16/2016 documented as of this encounter (statuses as of 05/14/2022) [facility] Evaluation note Note Date & Type Note Facility Evaluation note Diagnosis 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 documented in this encounter [facility] Evaluation note Note Date & Type Note Facility Evaluation note Diagnosis 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 Mediastinal mass Swelling, mass, or lump in chest documented in this encounter [facility] Summary Purpose Family History No Family History Records FoundNo Family History Records Found Advance Directives No Advanced Directives Records FoundNo Advanced Directives Records Found Additional Source Comments (unrecognized sect ion and content) No Status Records FoundNo Status Records Found INFORMATION SOURCE (unrecogn ized section and content) DATE CREATED AUTHOR 01/17/2018 [facility] DATE CREATED AUTHOR AUTHOR'S ORGANIZ ATION 05/17/2022 [facility] Source Comments (unrecognize d section and content) In the event this informatio n is protected by the Federal Confidentiality of Alcohol and Drug Abuse Patient Records regulations: The Federal rules restrict any use of the information to criminally investigate or prosecute any alcohol or drug abuse patient.[facility] the event this information is protected by the Federal Confidentiality of Alcohol and Drug Abuse Patient Records regulations: The Federal rules restrict any use of the information to criminally investigate or prosecute any alcohol or drug abuse patient.[facility] Reason for Visit (unrecogniz ed section and content) Reason Comments Established Patient Specialty Diagnoses / Procedures Referred By Conttyler t Referred To Contact Hematology/Oncology / HEMATOLOGY/ONCOLOGY Diagnoses CXR/CBC/CMP/LDH/1 YR OV* Procedures EST SIMPLE Jono Cuenca MD [address] [place] [address] Jono Cuenca MD [address] [place] [address] Referral ID Status Reason Start Date Expiration Date Visits Requested Visits Authorized [id number] Authorized Financial Clearance Required - Self Pay Patient Cleared - Qualified HCAP/501/FA 2 08/11/2022 99 99 Care Teams (unrecognized sec tion and content) Executive Producer Promos Relationship Specialty Start Date End Date Angela Feliciano MD, [address] [place] [address] Physician Radiation Oncology 05/24/16 Executive Producer Promos Relationship Specialty Start Date End Date Angela Feliciano MD, [address] [place] [address] Physician Radiation Oncology 05/24/16 FOR RECORDS PERTAINING TO PATIENTS WHO ARE OR HAVE BEEN ENROLLED IN A CHEMICAL DEPENDENCY/SUBSTANCEABUSE PROGRAM, SOME INFORMATION MAY BE OMITTED. This clinical summary was aggregated from multiple sources. Caution should be exercised in using it in the provision of clinical care. This summary normalizes information from multiple sources, and as a consequence, information in this document may materially change the coding, format and clinical context of patient data. In addition, data may be omitted in some cases. CLINICAL DECISIONS SHOULD BE BASED ON THE PRIMARY CLINICAL RECORDS. [employer] provides no warranty or guarantee of the accuracy or completeness of information in this document.
--- NOTE | 2024-12-28 09:23 | EDS_ITS ---
HPI History of Present Illness Chief Complaint: Shortness of Breath Detail of Chief Complaint: 1 week of dyspnea on exertion Informant: patient Onset/Context/Timing Onset: Weeks Context: Sudden Onset Timing: Intermittent Quality: Shortness of breath with activity without chest discomfort Location: Respiratory versus cardiovascular Current Severity: Mild Maximum Severity: Severe Worsened by: Minimal activity today compared to the beginning of the week Relieved by: Rest Associated Symptoms Associated Symptoms: None Narrative Narrative: Patient presents with shortness of breath. Shortness of breath with activity. Patient's shortness of breath improves with rest. He denies chest pressure, tightness heaviness. Patient states he had a mass in his chest. 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 He was seen in follow-up by Dr. Geovany Arvizu. His last ER visit was April 2016. Patient denies history of chest pressure, tightness, heaviness. Patient denies pain with breathing. Patient denies history of coronary artery disease. Patient denies anemia. Patient [place] black or maroon-colored stool. He denies history of COPD. Prior similar symptoms: No Recent Illness/Hospitalization: No PFSH PFSH Medical History no medical history Home Medications ?Medication ?Instructions ?Recorded ?Last Taken ?Type NK 12/28/24 Unknown History Allergy/AdvReac Type Severity Reaction Status Date / Time Penicillins AdvReac Unknown Verified 12/28/24 07:37 Surgical History H/O hernia repair Social History Smoking Status: Never smoker ROS ROS ED Constitutional Constitutional ED: Denies chills, fever(s), subjective or sweats Eyes Eyes: Denies blurry vision or change in vision ENT ENT ED: Denies ear pain or rhinorrhea Cardiovascular Cardiovascular: Denies chest pain, orthopnea, palpitations, paroxysmal nocturnal dyspnea or racing heartbeat Respiratory/Chest Respiratory/Chest: Reports dyspnea and dyspnea on exertion; Denies cough, orthopnea, paroxysmal nocturnal dyspnea or sputum Gastrointestinal Gastrointestinal: Denies abdominal pain, constipation, diarrhea, melena, nausea or vomiting Genitourinary Genitourinary ED: Denies dysuria, hematuria or urinary frequency Musculoskeletal Musculoskeletal: Denies arthralgias or myalgias Integumentary Denies rash Neurologic Neurologic: Denies weakness Hematologic/Lymphatic Hematologic/Lymphatic: Reports systems reviewed and no addt'l complaints, except as documented EXAM Physical Exam Const Vital Signs: 12/28/24 07:37 12/28/24 10:37 12/28/24 11:00 Temperature 97.9 F Temperature Source Temporal Pulse Rate 110 H 83 82 Respiratory Rate 20 H 15 16 Respiratory Effort Respiratory Depth Blood Pressure 137/85 H 126/82 H 120/78 Blood Pressure Mean 102 96 92 Pulse Ox 96 93 94 Oxygen Delivery Method Room Air Room Air Room Air 12/28/24 11:15 12/28/24 12:00 12/28/24 13:00 Temperature Temperature Source Pulse Rate 87 93 Respiratory Rate 25 H 23 H Respiratory Effort Short of Breath Respiratory Depth Normal Blood Pressure 123/77 H 154/85 H Blood Pressure Mean 92 108 Pulse Ox 99 92 Oxygen Delivery Method Room Air Room Air Positive well nourished and well developed Constitutional Narrative: Patient is mild respiratory distress with use accessory muscles. He is tachypneic and tachycardic General Appearance ED: well developed; Negative for cyanotic, diaphoretic or pallor HEENT Reports moist mucous membranes HEENT Narrative: Head is atraumatic normocephalic. Ears normal. Nares patent. Mucosa is moist. Posterior pharynx is normal Eyes PERRL and EOMs intact bilaterally General Eye ED: Negative for pale conjunctiva or scleral icterus Chest Wall inspection of chest normal and palpation of chest normal Resp normal respiratory effort and clear to auscultation bilaterally Cardio regular rhythm, S1 normal heart sound, S2 normal heart sound and no murmurs Rate: tachycardic GI normal to inspection, nondistended, normoactive bowel sounds, non-tender, non- distended and no masses; Negative for hepatosplenomegaly Back/Spine no CVA tenderness Extremity normal to inspection Extremity Narrative: There is no asymmetry, swelling, discoloration, leg vein distention, palpable cords or tenderness along the distribution of the deep venous system. Neuro oriented x3 and CN's II-XII intact bilaterally Sensorium / Orientation: alert Psych mental status grossly normal Skin no rashes or lesions noted, no wounds and skin turgor normal General Skin Exam: Negative for jaundice or pallor MDM MDM MDM Narrative Medical decision making narrative: Differential diagnosis would be cardiac versus noncardiac. Noncardiac would include pulmonary embolus, pneumonia, pneumothorax. Would also need to consider anemia. Clinically does not appear anemic. Workup included EKG, chest x-ray appropriate blood work which included a CBC, D-dimer, electrolyte panel, lactate and troponin. Lab Data Attestation: I reviewed the patient's lab results. Lab results narrative: White count is normal. H&H is 16.6 and 50.2. MCV is 100.2. Patient has evidence of eosinophilia. Electrolyte panel is normal. First troponin is normal. Lactate was normal at 1.5. Second troponin is normal at 19. Delta of 1. D-dimer was normal. Since patient has concerning story for possible anginal: Dyspnea 4-hour troponin is pending. Labs: Laboratory Results - last 24 hr 12/28/24 12/28/24 12/28/24 08:05 08:46 09:56 WBC 6.1 RBC 5.01 Hgb 16.6 H Hct 50.2 MCV 100.2 H MCH 33.1 H MCHC 33.1 RDW Std Deviation 47.5 H RDW Coeff of Isabel 12.8 Plt Count 195 MPV 9.1 Immature Gran % (Auto) 0.000 Neut % (Auto) 55.0 Lymph % (Auto) 24.3 Heard % (Auto) 8.0 Eos % (Auto) 11.7 H Baso % (Auto) 1.0 Absolute Neuts (auto) 3.4 Absolute Lymphs (auto) 1.48 Nucleated RBC % 0 D-Dimer Quant (PE/DVT) 0.40 Sodium 140 Potassium 4.5 Chloride 100 Carbon Dioxide 29.9 Anion Gap 10 BUN 15 Creatinine 1.08 Estim Creat Clear Calc 47.66 L Est GFR (MDRD) Non-Af 67 BUN/Creatinine Ratio 13.7 Glucose 125 H Lactic Acid 1.5 Calcium 9.8 Troponin T High Sens 18 Troponin T Hi Sens 2 Hr Cancelled 19 Troponin T Hi Sens 4Hr 12/28/24 12/28/24 10:15 12:13 WBC RBC Hgb Hct MCV MCH MCHC RDW Std Deviation RDW Coeff of Isabel Plt Count MPV Immature Gran % (Auto) Neut % (Auto) Lymph % (Auto) Heard % (Auto) Eos % (Auto) Baso % (Auto) Absolute Neuts (auto) Absolute Lymphs (auto) Nucleated RBC % D-Dimer Quant (PE/DVT) 0.33 Sodium Potassium Chloride Carbon Dioxide Anion Gap BUN Creatinine Estim Creat Clear Calc Est GFR (MDRD) Non-Af BUN/Creatinine Ratio Glucose Lactic Acid Calcium Troponin T High Sens Troponin T Hi Sens 2 Hr Troponin T Hi Sens 4Hr 17 4-hour troponin is 17 with delta of -2. Since patient have a physician he was referred to Dr. Bender. He will need an outpatient echo. Radiography Chest X-Ray - ED: 2 View and Read by ED Physician (2 view chest x-ray was independently reviewed by me and reveals chronic changes with hyperaeration. Cardiac silhouette size normal. There is no evidence of infiltrate, cephalization or effusion. Mediastinum is unremarkable. Osseous structures unremarkable.) Diagnostic Testing: Clinical Impression(s) from Imaging Studies Chest X-Ray 12/28/24 08:18 IMPRESSION: NO ACUTE FINDINGS. Reading Location: [facility] EKG Initial EKG: Attestation: I personally reviewed and interpreted this EKG as follows: Interpretation: Sinus Rhythm (Rate is 97. IA is 150 ms. QRS is prolonged 122 ms and configuration of right bundle branch block. QT interval is 372 ms. Weiner is normal) Management Discussion w/another healthcare provider: Other (Case discussed with Dr. Weber since he does not have a physician. Plan was to discharge and outpatient workup for his dyspnea on exertion i.e. echo etc.) Treatment and Re-Evaluation :: I was informed at 1302 that he is now hypoxic with a saturation 88%. I am uncertain the cause for his hypoxia at this point. Will observe to determine if this is accurate or not. Comments:: Plans to discharge to home since O2 is 94% on room air. Discharge Plan Triage Chief Complaint: Shortness of Breath ED Provider: Edgar Lyn Dx/Rx/DC Orders Clinical Impression: THOMAS (dyspnea on exertion), Elevated blood-pressure reading without diagnosis of hypertension, Polycythemia vera Instructions: ED Dyspnea, ED Hypertension, To Be Confirmed Prescriptions: No Action NK Primary Care Provider: Care Physician,No Primary Referrals: Domi Finley DO [Med Staff - Exchange Mechanic] - As soon as possible Care Physician,No Primary [Primary Care Provider] - Activity Restrictions/Additional Instructions: Call Dr. Martinez's office on Monday to set up an appointment to be seen as a new patient and to evaluate why you are short of breath with walking. You may need an outpatient echo. Also your blood pressure is slightly elevated and this will need to be monitored. Print Language: Swedish Disposition Disposition: Home, Self Care
[2024-12-28 10:20] LABS: Troponin T High Sens 2 HR 19 ng/L (<=22)
[2024-12-28 10:38] LABS: D-Dimer Quantitative (DVT/PE) 0.33 FEU/ug/m (0.27-0.49)
[2024-12-28 12:39] LABS: Troponin T High Sens 4 HR 17 ng/L (<=22)
--- NOTE | 2024-12-28 12:45 | CM.ED ---
Social Work Date of referral: 12/28/24 Reason for referral: No PCP Referred by: Social Work Identification Patient provided consent for social work visit. Patient stated his last PCP retired 7-8 years ago that was in [place] and patient hasn't gotten re-established since. Fishing Accessories Maker provided education about the importance of getting re-established with a PCP which patient verbalized he understood. hired worker talked with patient with various ways patient can get established and also provided a written handout to the [facility] which patient accepted. No other requests at this time. Brigette Cullen, CLASSROOM AIDE, ORTHOPAEDIC DOCTOR
--- NOTE | 2024-12-28 14:07 | ED.RN ---
this RN into D/C pt home. pt resting at 86% on RA, states feels SOB. Placed on 2L NC. Notified Dr. Riki FOOTE, no new orders at this time.
--- NOTE | 2024-12-28 14:40 | CT_ITS ---
PROCEDURE: CHEST WITHOUT CONTRAST N/A REASON FOR EXAM: UNEXPLAINED HYPOXIA TECHNIQUE: Chest CT without contrast. Coronal and Sagittal reconstruction series were provided. One or more dose reduction techniques were used (e.g., Automated exposure control, adjustment of the mA and/or kV according to patient size, use of iterative reconstruction technique RADIATION DOSE SUMMARY: CTDlvol: 10.83 mGy DLP: 461.94 mGycm COMPARISON: Chest radiograph 12/29/2019 FINDINGS: Hardware: None Lymph nodes: Heart and Vasculature: Normal size heart. Mild ectasia of ascending aorta to 41 mm Coronary Artery Calcifications: [id number] Lungs and Airways: Clear Pleura: Normal. No effusions. No pneumothorax. Upper Abdomen: Gallstones. No cholecystitis. Bones: No aggressive process. Multilevel endplate spondylosis. CT/Chest without Contrast IMPRESSION: Coronary artery calcification (CAC) is [id number] in severity Lungs are clear. No lung findings are seen that might suggest an acute process [facility]
[2024-12-28 15:24] LABS: Allen Test Positive; Base Excess 8 mmol/L (-2 to +2); Bicarbonate 31.5 mmol/L (22-26); Blood Gas Specimen Type ART; Mode Not entered; O2 Delivery Device Room Air; PO2 61 mmHG (75-100); SITE L Radial; SO2 92 % (95-99); Total Carbon Dioxide 33 mmol/L; pCO2 43.9 mmHg (35-45); pH 7.46 (7.35-7.45)
--- NOTE | 2024-12-28 15:35 | CM.ED ---
Social Work: general house worker called to also assist with discharge planning. Possible need of discharging home with oxygen which patient stated he would be able to pay for out of pocket if needed. It was later determined by ED doctor that patient will not qualify due to patient's current oxygen levels at room air. Material Clerk did, however, provide nurse with a pulse ox to give to the patient and asked that she teach patient how to use it so that patient can continue to monitor oxygen levels once discharged home to know if he needs to come back to the ED. No other issues/concerns. Brigette Cullen, SUPERVISOR CHANNEL PROCESS, MANAGER GIFT
== END 2024-12-28 15:57 | disposition home or self-care (01) ==
PROVIDERS: Emergency Provider Emergency Medicine; Visit Provider Emergency Medicine
DX: R06.09 Other forms of dyspnea (principal); D45 Polycythemia vera; R03.0 Elevated blood-pressure reading, without diagnosis of hypertension
CPT/HCPCS: 36600; 71046; 71250; 80048; 82803; 83605; 84484; 85025; 85379; 93005; 99284; A4216

== ENCOUNTER 2025-01-07 06:00 | Emergency (ER) | payer SELFPAY ==
[2025-01-07 06:02] VITALS: BP 127/84; PULSE 98; RESP 18; TEMP 36.6; O2SAT 100; BMI 22.8
[2025-01-07 07:09] VITALS: BP 113/76; PULSE 87; RESP 14; O2SAT 92
--- NOTE | 2025-01-07 07:31 | RAD_ITS ---
PROCEDURE: CHEST 1 VIEW (PORTABLE) 01/07/2025 REASON FOR EXAM: DYSPNEA TECHNIQUE: Frontal view of the chest. COMPARISON: 12/28/2024. FINDINGS: The lungs are expanded. There is no demonstrated parenchymal abnormality. There is no demonstrated pleural abnormality. Normal heart and pericardium. Normal mediastinum and delmi. Normal visualized pulmonary arteries. Normal visualized aortic arch and descending thoracic aorta. Mild diffuse spondylosis of the visualized thoracic spine. Normal visualized ribs, clavicles, and shoulders. There is no demonstrated abnormality of the visualized soft tissue structures of the upper abdomen. RAD/Chest 1 View (Portable) IMPRESSION: No evidence for acute abnormality. Reading Location: [facility]
[2025-01-07] MEDS: Ipratropium/Albuterol Sulfate 3 ML AMPUL.NEB INHALATION (07:41)
[2025-01-07 07:43] VITALS: PULSE 83; RESP 16
--- NOTE | 2025-01-07 07:47 | EDS_ITS ---
HPI History of Present Illness Chief Complaint: General Illness Informant: patient and family Narrative Narrative: 84-year-old male presenting to the emergency room chief complaint of intermittent dyspnea. Patient provides a history that is difficult to track and is seemingly disconnected (present in room for 25 minutes obtaining history). Apparently he was in the emergency department last week with an episode of dyspnea. He had an ABG he had CT scan of his chest blood work. He does not have a primary care doctor but states that he saw Dr. Sullivan at [facility] recently. He states that he is supposed to get an echocardiogram sometime in December. Apparently was discharged home with a pulse oximeter last week. He intermittently gets readings into the 70s and 80s. He notes sinus drainage and has been using OTC allergy medications. He states he coughs up phlegm. Daughter states that he called her this morning and he seemed like he was wheezing and noted that his pulse ox was in the 80s and so they came to the emergency to be evaluated. During episodes he gets sweaty. Patient reports a remote history of cancer question B-cell lymphoma. He states that he had treatment through [facility]. This was around 2016. CT scan last week did not show evidence of intrathoracic disease. He is not a smoker. There is no documented history of asthma or COPD but states I was born with asthma. PFSH PFSH Home Medications ?Medication ?Instructions ?Recorded ?Last Taken ?Type albuterol sulfate 90 mcg/actuation 2 puff inhalation Q 4H PRN PRN 01/07/25 Unkno wn Rx aerosol inhaler (Ventolin HFA) Wheezing ##1 Allergy/AdvReac Type Severity Reaction Status Date / Time Penicillins AdvReac Unknown Verified 01/07/25 06:03 Surgical History H/O hernia repair Social History Smoking Status: Never smoker ROS ROS ED Constitutional Constitutional ED: Reports sweats; Denies chills, fever(s) or weight loss Eyes Eyes: Denies change in vision or diplopia ENT ENT ED: Reports rhinorrhea; Denies ear pain or sore throat Cardiovascular Cardiovascular: Denies chest pain, orthopnea, palpitations or racing heartbeat Respiratory/Chest Respiratory/Chest: Reports cough, dyspnea and sputum; Denies orthopnea Gastrointestinal Gastrointestinal: Denies abdominal pain, diarrhea, nausea or vomiting Genitourinary Genitourinary ED: Denies dysuria, hematuria or urinary frequency Musculoskeletal Musculoskeletal: Denies arthralgias or myalgias Integumentary Denies abscess or rash Neurologic Neurologic: Denies headache(s) or weakness Psychiatric Psychiatric: Denies anxiety, depression, suicidal ideation or suicidal thoughts Endocrine Endocrinology: Denies polydipsia, polyphagia or polyuria Allergic/Immunologic Allergic/Immunologic ED: Denies mouth swelling, tongue swelling or urticaria EXAM Physical Exam Const Vital Signs: 01/07/25 06:02 01/07/25 06:02 01/07/25 07:09 Temperature 97.8 F Temperature Source Oral Pulse Rate 98 87 Respiratory Rate 18 14 Respiratory Effort Normal Non-Labored Respiratory Pattern Normal Blood Pressure 127/84 H 113/76 Blood Pressure Mean 98 88 Pulse Ox 100 92 Oxygen Delivery Method Room Air Room Air 01/07/25 07:43 Temperature Temperature Source Pulse Rate 83 Respiratory Rate 16 Respiratory Effort Respiratory Pattern Blood Pressure Blood Pressure Mean Pulse Ox Oxygen Delivery Method Positive well nourished and well developed General Appearance ED: well developed and NAD HEENT Reports normocephalic, head/scalp atraumatic and moist mucous membranes Eyes PERRL and EOMs intact bilaterally Neck no lymphadenopathy, supple and no JVD Resp normal respiratory effort and clear to auscultation bilaterally Resp Narrative: Patient is speaking in full sentences. Auscultation: wheezes expiratory wheezes (Faint) Cardio regular rate, regular rhythm and no murmurs GI normal to inspection, nondistended, normoactive bowel sounds and non-tender Palpation: soft Back/Spine no CVA tenderness and normal ROM Extremity normal to inspection General Extremety ED: Negative for edema General Extremity: Negative for edema Neuro oriented x3 and CN's II-XII intact bilaterally Sensorium / Orientation: alert Motor Exam: strength 5/5 throughout Psych mental status grossly normal Mood & Affect: Negative for depressed or tearful Skin no rashes or lesions noted and no wounds MDM MDM MDM Narrative Medical decision making narrative: Differential diagnosis includes but not limited to bronchospasm interstitial lung disease anemia pleural effusion pneumonia malignancy mucous plugging I reviewed the patient's previous ED visit. It seemed to be a very comprehensive ED visit including ABG and CT scan. Patient does have some expiratory wheezing I gave him a DuoNeb but it resolved on repeat examination. Basic blood work is does not show any significant changes. LidoPeruiz lyons nterpretation of the chest x-ray is no acute process. Given the patient's allergic symptoms of the nose and drainage and bronchospasm intermittent could this be allergy induced asthma? Could this be related to his radiation in the past.? I think it is reasonable that we do a dose of steroids and have him use a albuterol MDI for the episodes. Continue to monitor his pulse ox and his symptomology. Family is going to get him established with primary care for follow-up. I do not feel that the patient needs to be admitted today. He has not been hypoxic here in the department. History & Record Review Discussion w/independent historian: Patient and Family (Daughter) Additional record(s) reviewed:: Prior ED visit and Prior labs Lab Data Attestation: I reviewed the patient's lab results. Labs: Laboratory Results - last 24 hr 01/07/25 07:38 WBC 6.4 RBC 4.96 Hgb 16.4 Hct 48.5 MCV 97.8 H MCH 33.1 H MCHC 33.8 RDW Std Deviation 45.5 H RDW Coeff of Isabel 12.7 Plt Count 215 MPV 9.6 Immature Gran % (Auto) 0.300 Neut % (Auto) 59.7 Lymph % (Auto) 22.4 Bacon % (Auto) 8.7 Eos % (Auto) 7.6 H Baso % (Auto) 1.3 H Absolute Neuts (auto) 3.8 Absolute Lymphs (auto) 1.42 Nucleated RBC % 0 Sodium 140 Potassium 4.1 Chloride 98 Carbon Dioxide 27.2 Anion Gap 14 BUN 21 H Creatinine 1.06 Estim Creat Clear Calc 49.60 L Est GFR (MDRD) Non-Af 68 BUN/Creatinine Ratio 19.3 Glucose 97 Calcium 10.0 Total Bilirubin 1.03 AST 36 ALT 22 Alkaline Phosphatase 71 Total Protein 6.9 Albumin 4.2 Globulin 2.7 Albumin/Globulin Ratio 1.6 Radiography Diagnostic Testing: Clinical Impression(s) from Imaging Studies Chest X-Ray 01/07/25 07:31 IMPRESSION: No evidence for acute abnormality. Reading Location: [facility] Discharge Plan Triage Chief Complaint: General Illness ED Provider: Joshua Benz Dx/Rx/DC Orders Clinical Impression: Dyspnea, Allergies Instructions: ED Bronchospasm (Adult), ED Dyspnea Prescriptions: New albuterol sulfate [Ventolin HFA] 90 mcg/actuation HFA aerosol inhaler 2 puff inhalation Q4H PRN PRN (Reason: Wheezing) Qty: 1 0RF Rx Instructions: with spacer Primary Care Provider: Care Physician,No Primary Referrals: Care Physician,No Primary [Primary Care Provider] - Activity Restrictions/Additional Instructions: Use inhaler when you feel like these episodes are coming on. 2 to 3 puffs into the spacer and break the medication in. Once you establish a primary care doctor reevaluate how your symptoms are using the inhaler and you may need pulmonary function studies. Print Language: Costa Rican Disposition Disposition: Home, Self Care
[2025-01-07 07:48] LABS: Absolute Lymphocyte Count 1.42 X10^3/uL (0.83-4.51); Absolute Neutrophil Count 3.8 X10^3/uL (2.0-7.7); Basophil# 0.08 X10^3/uL; Basophil% 1.3 % (0-1); Eosinophil# 0.48 X10^3/uL; Eosinophils% 7.6 % (0-5); Hematocrit 48.5 % (40-54); Hemoglobin 16.4 g/dL (13.0-16.5); Lymphocyte # 1.42 X10^3/ul (0.83-4.51); Lymphocyte % 22.4 % (19-41); Mean Corp Hgb Conc 33.8 g/dL (32-36); Mean Corpuscular Hgb 33.1 pg (27.0-32.0); Mean Corpuscular Volume 97.8 fL (80-94); Mean Platelet Vol. 9.6 fl (6.2-12.0); Monocyte# 0.55 X10^3/uL; Monocyte% 8.7 % (0-10); NRBC Flagged by Analyzer 0 % (0-5); Neutrophil % 59.7 % (47-70); Platelet Count 215 K/mm3 (150-450); RBC Distribution Width CV 12.7 % (11.6-14.6); RBC Distribution Width SD 45.5 fl (35.1-43.9); Red Blood Count 4.96 M/mm3 (4.6-6.2); White Blood Count 6.4 K/mm3 (4.4-11.0)
[2025-01-07 08:13] LABS: ALB/GLOB Ratio 1.6 RATIO (0.9-2.4); AST(SGOT) 36 U/L (<=37); Alanine Aminotransfer ALT/SGPT 22 U/L (<=46); Albumin, Serum 4.2 g/dL (3.4-4.8); Alkaline Phosphatase 71 U/L (40-129); Anion Gap 14 (5-15); BUN 21 mg/dL (4-19); BUN/Creat Ratio 19.3 RATIO (10-20); Carbon Dioxide 27.2 mmol/L (21.0-32.0); Chloride 98 mmol/L (98-108); Creatinine, Serum 1.06 mg/dL (0.70-1.20); EST Glomerular Filtration Rate 68 (>60); Globulin 2.7 g/dL (2.2-4.2); Glucose 97 mg/dL (70-99); Potassium 4.1 mmol/L (3.3-5.1); Protein, Total 6.9 g/dL (5.9-8.4); Sodium Level 140 mmol/L (133-145); Total Bilirubin 1.03 mg/dL (0.00-1.30)
[2025-01-07] MEDS: Triamcinolone Acetonide 40 MG/ML Vial 80 MG IM (08:58)
[2025-01-07 09:02] VITALS: BP 113/62; PULSE 81; RESP 14; TEMP 36.1; O2SAT 93
== END 2025-01-07 09:22 | disposition home or self-care (01) ==
PROVIDERS: Emergency Provider Emergency Medicine; Visit Provider Emergency Medicine
DX: R06.00 Dyspnea, unspecified (principal); R05.9 Cough, unspecified; J30.2 Other seasonal allergic rhinitis
CPT/HCPCS: 71045; 80053; 85025; 94640; 96372; 99283; A4216

== ENCOUNTER → 2025-01-16 | Outpatient (CLI) | payer SELFPAY | END | disposition home or self-care (01) | PROVIDERS: Referring Provider Internal Medicine; Visit Provider Internal Medicine | DX: R06.00 Dyspnea, unspecified (principal) | CPT/HCPCS: 93225; 93226 ==